=== PATIENT | female | born 1955 | race Caucasian/White ===

== ENCOUNTER 2019-10-07 04:15 | Emergency (ER) | payer MEDICARE, OTHER ==
--- NOTE | 2019-10-07 04:32 | EDM.PDOC ---
[facility] GENERAL MEDICAL PROBLEM - General Chief Complaint: Genitourinary Problem Stated Complaint: POSSIBLE UTI Time Seen by Provider: 10/07/19 04:32 Source of Information: Reports: Patient History Limitations: Reports: No Limitations - History of Present Illness INITIAL COMMENTS - FREE TEXT/NARRATIVE: Patient is a 64-year-old female with a past medical history of diabetes, hypertension presenting with chief complaint of suprapubic discomfort. Patient states she is had the symptoms for the past several days. Patient reports associated dysuria. Patient noticed this morning when she went to the bathroom she is having difficulty urinating and noticed some small amount of blood in the toilet. Patient denies any fevers, chills, flank pain. Patient denies any nausea, vomiting. States she is never had these problems in the past. Pmhx: Per HPI Pshx: None Family Hx: noncontributory Smoking history? no Etoh use? none Drug use? none In addition to that documented in the HPI above, the additional ROS was obtained : Constitutional: Denies fevers or chills Eyes: Denies vision changes ENMT: Denies sore throat CV: Denies chest pain Resp: Denies SOB GI: Denies vomiting or diarrhea : Denies painful urination MSK: Denies recent trauma Skin: Denies new rashes Neuro: Denies new numbness or tingling or weakness Endocrine: Denies unexpected weight loss Heme: Denies bleeding disorders I have reviewed the triage vital signs Const: Well nourished, well developed, appears stated age Eyes: PERRL, no conjunctival injection HENT: NCAT, Neck supple without meningismus CV: RRR, Warm, well-perfused extremities RESP: CTAB, Unlabored respiratory effort GI: soft, non-tender, non-distended, no masses MSK: No gross deformities appreciated Skin: Warm, dry. No rashes Neuro: Alert, household appliance mechanic II-XII grossly intact. Sensation and motor function of extremities grossly intact. Psych: Appropriate mood and affect Assessment and plan: Patient is a 64-year-old female presenting with a chief complaint of dysuria. Patient reports symptoms onset approximately 2 days ago. Patient has no systemic symptoms to suggest that pyelonephritis is developed. Given patient's age and comorbid diabetes, patient will be treated with cefpodoxime antibiotics. Patient instructed to follow-up with primary care physician in the next 2 days. Culture will be sent for antibiotic sensitivity. All questions addressed and answered. Patient agrees with plan. Bladder Pain Score (Numeric/FACES): 7 - Related Data Allergies Allergy/AdvReac Type Severity Reaction Status Date / Time No Known Allergies Allergy Verified 10/07/19 04:24 Home Meds: Home Meds Lisinopril 40 mg PO DAILY 03/04/18 [History] atorvaSTATin Calcium [Atorvastatin Calcium] 10 mg PO DAILY 03/04/18 [History] hydroCHLOROthiazide [Hydrochlorothiazide] 25 mg PO DAILY 03/04/18 [History] metFORMIN HCl [Metformin HCl] 500 mg PO DAILY 03/04/18 [History] Cefpodoxime [Vantin] 200 mg PO BID #20 tab 10/07/19 [Rx] Phenazopyridine HCl [Azo Urinary Pain Relief] 97.5 mg PO TID #21 tablet [Rx] Past Medical History HEENT History: Reports: Hard of Hearing Other HEENT History: wears glasses, has upper full denture and lower partial denture- has dental implants Cardiovascular History: Reports: High Cholesterol, Hypertension Other Respiratory History: has been a smoker for 45 years Gastrointestinal History: Reports: Diverticulosis Genitourinary History: Reports: None [facility] History: Reports: Ectopic , Musculoskeletal History: Reports: None Neurological History: Reports: None Psychiatric History: Reports: None Endocrine/Metabolic History: Reports: Obesity/BMI 30+, Other (See Below) Other Endocrine/Metabolic History: pre-diabetic Hematologic History: Reports: None Immunologic History: Reports: None Oncologic (Cancer) History: Reports: None Dermatologic History: Reports: None - Infectious Disease History Infectious Disease History: Reports: None - Past Surgical History Head Surgeries/Procedures: Reports: None HEENT Surgical History: Reports: Oral Surgery, Tonsillectomy Other HEENT Surgeries/Procedures: dental implants GI Surgical History: Reports: Colonoscopy Female Surgical History: Reports: Tubal Ligation, Other (See Below) Other Female Surgeries/Procedures: removal of ectopic ED ROS GENERAL - Review of Systems Review Of Systems: See Below ED EXAM, RENAL/ - Physical Exam Exam: See Below Course - Vital Signs Last Recorded V/S: Last Vital Signs Temp 35.9 C L 10/07/19 04:24 Pulse 69 10/07/19 04:24 Resp 17 10/07/19 04:24 BP 156/59 H 10/07/19 04:24 Pulse Ox 96 10/07/19 04:24 - Orders/Labs/Meds Orders: Active Orders 24 hr Category Date Time Status Blood Glucose Check, Bedside [RC] ONETIME Care 10/07/19 04:32 Active CULTURE URINE [RM] Stat Lab 10/07/19 04:32 Received Labs: Laboratory Tests 10/07/19 10/07/19 Range/Units 04:32 04:39 POC Glucose 87 (60-110) mg/dL Urine Color YELLOW Urine Appearance CLOUDY Urine pH 6.5 (5.0-8.0) Ur Specific [place] 1.025 (1.001-1.035) Urine Protein 100 H (NEGATIVE) mg/dL Urine Glucose (UA) NEGATIVE (NEGATIVE) mg/dL Urine Ketones NEGATIVE (NEGATIVE) mg/dL Urine Occult Blood LARGE H (NEGATIVE) Urine Nitrite NEGATIVE (NEGATIVE) Urine Bilirubin NEGATIVE (NEGATIVE) Urine Urobilinogen 0.2 (<2.0) EU/dL Ur Leukocyte Esterase SMALL H (NEGATIVE) Urine RBC TOO NUMEROUS TO CT H (0-2/HPF) Urine WBC 10-15 (0-5/HPF) Ur Epithelial Cells OCCASIONAL (NONE-FEW) Urine Bacteria 2+ H (NEGATIVE) Departure - Departure Time of Disposition: 04:53 Disposition: Home, Self-Care 01 Clinical Impression: UTI, Urinary tract infectious disease - Discharge Information Prescriptions: Cefpodoxime [Vantin] 200 mg PO BID #20 tab Phenazopyridine HCl [Azo Urinary Pain Relief] 97.5 mg PO TID #21 tablet Instructions: Urinary Tract Infection, Adult Referrals: Lyndsay James NP [Primary Care Provider] - Forms: ED Department Discharge Additional Instructions: The following information is given to patients seen in the emergency department who are being discharged to home. This information is to outline your options for follow-up care. We provide all patients seen in our emergency department with a follow-up referral. The need for follow-up, as well as the timing and circumstances, are variable depending upon the specifics of your emergency department visit. If you don't have a primary care physician on staff, we will provide you with a referral. We always advise you to contact your personal physician following an emergency department visit to inform them of the circumstance of the visit and for follow-up with them and/or the need for any referrals to a consulting specialist. The emergency department will also refer you to a specialist when appropriate. This referral assures that you have the opportunity for follow-up care with a specialist. All of these measure are taken in an effort to provide you with optimal care, which includes your follow-up. Under all circumstances we always encourage you to contact your private physician who remains a resource for coordinating your care. When calling for follow-up care, please make the office aware that this follow-up is from your recent emergency room visit. If for any reason you are refused follow-up, please contact the [facility] Emergency Department at and asked to speak to the emergency department charge nurse. Sepsis Event Note - Evaluation Sepsis Screening Result: No Definite Risk - Focused Exam Vital Signs: Vital Signs Temp Pulse Resp BP Pulse Ox 10/07/19 04:24 35.9 C L 69 17 156/59 H 96 Date Exam was Performed: 10/07/19 Time Exam was Performed: 04:56 - My Orders Last 24 Hours: My Active Orders 10/07/19 04:32 Blood Glucose Check, Bedside [RC] ONETIME CULTURE URINE [RM] Stat - Assessment/Plan Last 24 Hours: My Active Orders 10/07/19 04:32 Blood Glucose Check, Bedside [RC] ONETIME CULTURE URINE [RM] Stat
== END 2019-10-07 05:10 | disposition home or self-care (01) ==
LOC: MW.ED 04:15
DX: N39.0 Urinary tract infection, site not specified (principal); I10 Essential (primary) hypertension; E78.00 Pure hypercholesterolemia, unspecified; E66.9 Obesity, unspecified; Z68.34 Body mass index [BMI] 34.0-34.9, adult; Z79.899 Other long term (current) drug therapy
CPT/HCPCS: 81001; 82962; 87086; 99284

== ENCOUNTER 2022-05-08 19:28 | Emergency (ER) | payer MEDICARE, OTHER ==
[2022-05-08] MEDS ORDERED: Lidocaine 1% PF 2 ML SDV INJECT ONE (21:37)
[2022-05-08] MEDS ORDERED: Cephalexin 500 MG Cap PO ONE (21:53)
== END 2022-05-08 22:06 | disposition home or self-care (01) ==
LOC: MW.ED 19:28
DX: S90.852A Superficial foreign body, left foot, initial encounter (principal); L08.9 Local infection of the skin and subcutaneous tissue, unspecified; E78.00 Pure hypercholesterolemia, unspecified; I10 Essential (primary) hypertension; E66.9 Obesity, unspecified; Z68.36 Body mass index [BMI] 36.0-36.9, adult; Z79.899 Other long term (current) drug therapy; Z79.84 Long term (current) use of oral hypoglycemic drugs; W26.8XXA Contact with other sharp object(s), not elsewhere classified, initial encounter
CPT/HCPCS: 28190; 73620; 99283; A9270